=== PATIENT | female | born 1980 | race Caucasian/White ===

== ENCOUNTER → 2022-12-12 11:01 | Outpatient (CLI) | payer BC, SELFPAY ==
[2022-12-12 12:29] LABS: T4 (Thyroxine) 9.8 ug/dl (5.53-11.0); Triiodothryronine (T3) Uptake 41 % (23.5-40.5)
[2022-12-12 12:43] LABS: Thyroid Stimulating Hormone 1.16 uIU/mL (0.465-4.68)
[2022-12-13 16:13] LABS: Anti-Centromere B Antibodies <0.2 AI (0.0-0.9); Anti-DNA (DS) Ab Qn 2 IU/mL (0-9); Anti-Jo-1 <0.2 AI (0.0-0.9); Anti-Smith Antibody <0.2 AI (0.0-0.9); Antichromatin Antibodies <0.2 AI (0.0-0.9); Antiscleroderma-70 Antibodies <0.2 AI (0.0-0.9); RNP Antibodies <0.2 AI (0.0-0.9); Sjogren's Anti-SS-A <0.2 AI (0.0-0.9); Sjogren's Anti-SS-B <0.2 AI (0.0-0.9)
== END ==
PROVIDERS: PCP Family Medicine; Visit Provider Obstetrics & Gynecology
DX: N92.0 Excessive and frequent menstruation with regular cycle (principal); R60.0 Localized edema
CPT/HCPCS: 36415; 84436; 84443; 84479; 86225; 86235

== ENCOUNTER → 2023-01-23 14:45 | Outpatient (CLI) | payer BC, SELFPAY ==
--- NOTE | 2023-01-23 14:45 | MM_ITS ---
PROCEDURE INFORMATION: Exam: MG Bilateral Screening 3D Mammography Exam date and time: 01/23/2023 3:12 PM Age: 42 years old Clinical indication: Baseline. No family history of breast cancer. History of implants removed in 2019. TECHNIQUE: Imaging protocol: Bilateral Screening tomosynthesis and 2D mammography including computer-aided detection (CAD) when performed. COMPARISON: No relevant prior studies available. FINDINGS: MAMMOGRAPHY: Breast composition: The breasts are heterogeneously dense, which may obscure small masses. Mass: No suspicious mass. Architectural distortion: Mild diffuse bilateral architectural distortion with history of explantation. Calcifications: No suspicious calcifications. Asymmetric density: None. Skin thickening: None. Axillary adenopathy: None. IMPRESSION: No mammographic evidence of malignancy. Annual screening is recommended unless otherwise clinically indicated. ASSESSMENT: BI-RADS Category 2: Benign
--- NOTE | 2023-01-23 14:45 | US_ITS ---
FINAL REPORT CLINICAL HISTORY: abnormal bleeding FINDINGS: Transvaginal sonographic images of the pelvis were obtained. The uterus measures 9.1 x 5.5 x 4.5 cm. The endometrium measures 9 mm, which is within normal limits. No uterine mass is identified. The right ovary measures 2.1 cm in length and left ovary measures 3.0 cm in length. Normal blood flow seen to the ovaries. There is an 11 mm cyst or follicle in the right ovary. There is no evidence of free fluid. IMPRESSION: 11 mm cyst or follicle in the right ovary. Otherwise unremarkable exam. Reviewed, Interpreted and Dictated by Kushal Peña III, MD Transcribed by Eden Crook Authenticated and [facility]
== END ==
PROVIDERS: PCP Family Medicine; Visit Provider Obstetrics & Gynecology
DX: Z12.31 Encounter for screening mammogram for malignant neoplasm of breast (principal); N92.0 Excessive and frequent menstruation with regular cycle
CPT/HCPCS: 76830; 77063; 77067

== ENCOUNTER → 2023-04-13 10:03 | Outpatient (CLI) | payer BC, SELFPAY ==
[2023-04-13 10:28] LABS: Basophils # 0.1 K/mm3 (0-0.2); Basophils % 0.6 % (0.1-2.0); Eosinophils # 0.4 K/mm3 (0.0-0.4); Eosinophils % 5.4 % (0.1-12.0); Hematocrit 46.2 % (37.0-47.0); Hemoglobin 14.5 g/dL (12.2-16.2); Lymphocytes # 1.9 K/mm3 (0.7-4.5); Lymphocytes % 24.6 % (10-50); Mean Corpuscular HGB Conc 31.5 g/dL (31.8-35.4); Mean Corpuscular Volume 92.2 fl (81-99); Mean Platelet Volume 7.7 fl (7.4-10.4); Monocytes # 0.5 K/mm3 (0.1-1.0); Neutrophils # 4.9 K/mm3 (1.8-7.8); Neutrophils % 63.4 % (37.0-80.0); Platelet Count 288 K/mm3 (142-424); Red Blood Count 5.01 M/mm3 (4.20-5.40); Red Cell Distribution Width 13.6 % (11.5-17.5); White Blood Count 7.8 K/mm3 (4.8-10.8)
[2023-04-13 11:15] LABS: Alanine Aminotransferase 21 U/L (12-78); Albumin Level 4.5 g/dl (3.5-5.0); Albumin/Globulin Ratio 1.9 (1.1-1.8); Alkaline Phosphatase 89 U/L (38-126); Anion Gap 15.5 mEq/L (5-15); Aspartate Amino Transferase 26 U/L (14-36); Bilirubin,Total 0.6 mg/dl (0.2-1.3); Blood Urea Nitrogen 14 mg/dl (7-17); Calcium 9.3 mg/dl (8.4-10.2); Carbon Dioxide 26 mmol/L (22.0-30.0); Chloride 103 mmol/L (98-107); Estimated Glomerular Filt Rate 78 ml/min (>60); GFR (African American) 94 ML/MIN (>60); Globulin 2.4 g/dL (1.3-3.2); Glucose 92 mg/dl (74-100); Potassium 4.5 mmoL/L (3.5-5.1); Sodium 140 mmol/L (136-145); Total Protein,Serum 6.9 g/dl (6.3-8.2)
[2023-04-13 11:33] LABS: HCG,Quantitative < 2 mIU/ml (0-5.42)
== END ==
PROVIDERS: PCP Family Medicine; Visit Provider Obstetrics & Gynecology
DX: Z01.812 Encounter for preprocedural laboratory examination (principal); N92.0 Excessive and frequent menstruation with regular cycle
CPT/HCPCS: 36415; 80053; 84702; 85025

== ENCOUNTER 2023-04-16 06:07 | Day surgery (SDC) | payer BC, SELFPAY ==
[2023-04-16] VITALS (13 sets, daily range): BP systolic 120–149; BP diastolic 68–85; PULSE 73–87; RESP 14–18; TEMP 36.1–43; O2SAT 96–100; BMI 27.1
--- NOTE | 2023-04-16 07:01 | P.PN_ITS ---
[facility] Disclaimer: The information contained in this section may have been updated after the patient was seen, as this information can be updated by other users. Medical History Allergies Anxiety and depression History of COVID-19 History of gastroesophageal reflux (GERD) Menorrhagia Migraine Request for sterilization Surgical History Hx of breast augmentation Hx of section Hx of tonsillectomy Family History Other Diabetes Hypertension Social History Smoking Status: Never smoker alcohol intake: never substance use type: denies use current occupational status: employed Travel in the last 8 weeks: None [facility] Anesthesia Checklist Patient Identification Patient Identification: Arm Band and Verbal (Name & ) Structural Data Admitted From: Home Planned Operative Procedure/s: Lap salpingectomy Consent for Planned Operative Procedure(s) Verified: Yes NPO Status Verified Time NPO: 00:00 Chart Verification Results Verified: HCG Additional verifications Anesthesia Reactions: No Hx Blood Transfusions: Yes Blood Transfusion Reaction: No Airway Assessment C-Spine Mobility Assessed: Yes TMJ Mobility Assessed: Yes Dentition: Good Dentition Neurological Assessment Level of Consciousness: Awake Hx Seizures: No Numbness or tingling in extremities: No Anesthesia Plan Anesthesia Risk discussed: Yes Anesthesia Plan: Verified ASA Class: I Anesthesia Type: General
--- NOTE | 2023-04-16 09:01 | EXP.ANES.I ---
[facility] Anesthesia Record Part I Anesthesia Record I Intake, IV Amount: 1,000 Estimated blood loss (mL): 5 Urine output (mL): 0 Blood Products used (#): none Blood Pressure: 128/80 SaO2: 99 Pulse Rate: 74 Respiratory Rate: 14 Temperature: 97 F Patient is:: Drowsy Stable to PACU at:: 09:00
--- NOTE | 2023-04-16 09:12 | EXP.OP.NOTE ---
Date of procedure: 04/16/23 Pre-op Diagnosis:: 1. Menorrhagia 2. Complete family status, desires permanent sterilization Post-op Diagnosis:: 1. Menorrhagia 2. Complete family status, desires permanent sterilization 3. Intra-abdominal and intrapelvic adhesions Procedure performed:: 1. Laparoscopy, lysis of adhesions (10 minutes), Filshie clip placement 2. Hysteroscopy, D&C, Novasure endometrial ablation Surgeon:: Shobha Mixon DO Mixing Technician(s):: N/a [employer]IGARET[employer] CART[employer] SEALER:: Other Anesthesia: GETA Estimated blood loss (mL): 5 Clinical Note:: Ms Christiane Cardoso is a 43 yo P1001 who presents to [facility] for scheduled procedure. She complains of heavy periods that are regular, monthly. Flow is about 5 days but flow is getting heavier and heavier. She is complete with childbearing and would like to have permanent sterilization. Pelvic ultrasound 01/23/23 was within normal limits. TSH, 12/12/22, was 1.16. Operative findings:: 1. On bimanual exam, uterus midposition, normal size and shape, fixed in position 2. On laparoscopic exam, omentum adhered to anterior abdominal and anterior pelvic wall. Adhesions noted at vesicouterine peritoneum. Uterus fixed in the pelvis, very little movement. Bilateral fallopian tubes and bilateral ovaries grossly normal. Liver, gallbladder and stomach grossly normal. Bowel grossly normal. 3. On hysteroscopic exam, bilateral tubal ostia visualized but difficult initially secondary to large amount of fluffy endometrial tissue present in cavity Operative note:: Risks, benefits and alternatives were discussed with the patient. Risks include but are not limited to bleeding, infection, damage to adjacent structures and VTE. Patient voiced understanding and agreed to proceed with surgery. She was wheeled back to the operating room and placed under general anesthesia without difficulty. She was placed in the dorsal lithotomy position and prepped and draped in normal sterile fashion. A straight catheter was used to drain the bladder prior to the start of the procedure. A bimanual exam was performed. A weighted Auvard was placed in the vaginal vault. A single tooth tenaculum was placed on the anterior lip of the cervix. [place] manipulator was inserted into the cervical canal and attached to the tenaculum. Weighted Auvard was removed from the vagina. Attention was then drawn to the abdomen. A 1.5cm infraumbilical incision was made. Veress needle was tested and inserted intraabdominally without difficulty. Opening pressure of 7mm Hg. Abdomen was then insulflated to 15 mm Hg. Trocar was inserted through infraumbilical incision and laparoscope was inserted. Abdomen was viewed in its entirety. See findings above. Pictures were taken. Left lower quadrant was transilluminated. 5 mm incision was made and 5 mm disposable blunt trocar was inserted into the abdomen under direct laparoscopic visualization. Trocar was removed and sleeve was left in place. Ligasure was used to lysis adhesions between anterior abdominal and anterior pelvic wall and omentum. Next, right fallopian tube was followed down. Right Filshie clip was placed approximately 2 cm from cornua, on the isthmic portion of the tube. Same procedure was carried out on the left side. Hemostasis was noted. Pictures were taken. Left lower quadrant trocar was removed under direct laparoscopic visualization. Pneumoperitoneum was released into the atmosphere. Infraumbilical trocar was removed under direct laparoscopic visualization to ensure no herniation of bowel or omentum. Skin incisions were closed with 3-0 Vicryl. Dermabond was applied over closed skin incisions. Attention was then turned to the vagina. [place] manipulator was removed. Uterus sounded to 10. Sequential Avelino dilators were used to dilate the cervical os. Hysteroscope was tested inserted through the cervix without difficulty. Endometrial cavity was evaluated. See findings above. Pictures were taken. Hysteroscope was removed. Medium size sharp curette was ins
--- NOTE | 2023-04-16 09:35 | SUR.OPER ---
0755- SPOKE WITH PATIENTS DAUGHTER REGARDING MD CHANGE IN PLAN TO APPLY FILSHIE CLIPS INSTEAD OF FULLY REMOVING TUBES. DAUGHTER STATED, THAT IS OKAY, DO WHATEVER IS NECESSARY.
--- NOTE | 2023-04-16 14:00 | P.PNANES_ITS ---
[facility] Anesthesia Record Part II Anesthesia Record Part II Discharge Time: 09:50 Destination: Surgical Day Care (OP Surgery) PACU nurse assessment reviewed?: Yes Patient Condition:: Good Anesthesia Complications:: None Swallowing reflex intact?: Yes Cyanosis?: No Blood Pressure: 144/75 Pulse Rate: 79 Temperature: 98 F Mental Status: Alert & Oriented Pain level:: 5 Nausea and/or vomitting:: None Intake, IV Amount: 0
== END 2023-04-16 10:30 | disposition home or self-care (01) ==
PROVIDERS: PCP Family Medicine; Visit Provider Obstetrics & Gynecology
PROC: (CPT 58563; principal; 2023-04-16 07:30)
PROC: 0UDB8ZZ Extraction of Endometrium, Via Natural or Artificial Opening Endoscopic (ICD-10-PCS; CPT 58558; 2023-04-16 07:30)
DX: N92.0 Excessive and frequent menstruation with regular cycle (principal); Z30.2 Encounter for sterilization; N73.6 Female pelvic peritoneal adhesions (postinfective)
CPT/HCPCS: 58563; 58671; 49329; J2405

== ENCOUNTER 2023-10-05 08:31 | Emergency (ER) | payer BC, SELFPAY ==
[2023-10-05 08:33] VITALS: BP 138/94; PULSE 113; RESP 20; TEMP 36.8; O2SAT 99; BMI 23.5
--- NOTE | 2023-10-05 08:44 | PC.NURSE ---
Dr. Green at [facility] for pt eval
--- NOTE | 2023-10-05 08:48 | CT_ITS ---
FINAL REPORT TECHNIQUE: After the administration of intravenous contrast, axial images were obtained through the abdomen and pelvis by computed tomography. The study was performed with techniques to keep radiation dose as low as reasonably achievable, (ALARA). Individual dose reduction techniques using automated exposure control or adjustment of mA and/or kV according to the patient's size were employed. CLINICAL HISTORY: RLQ abd pain FINDINGS: Abdomen: The lung bases are clear. The liver parenchyma is homogeneous. The gallbladder is present. The spleen, pancreas, adrenals and kidneys appear unremarkable. The aorta is normal in caliber. There is no free fluid or adenopathy. Pelvis: The appendix is normal. There is a large amount of retained stool throughout the colon. There are low-attenuation areas in the uterus, probably fluid in the endometrial cavity. The urinary bladder is unremarkable. There is no free fluid or adenopathy. IMPRESSION: Constipation Reviewed, Interpreted and Dictated by Pablo Blanton MD Transcribed by Franny Deng Authenticated and [facility]
--- NOTE | 2023-10-05 08:50 | HMH.EDGENADL ---
Discharge Plan Disposition Patient Disposition: Home, Self-Care Prescriptions Prescriptions: New dicyclomine 20 mg tablet 20 mg PO TID PRN (Reason: abdominal pain or spasm) 7 Days Qty: 21 0RF No Action tramadol 50 mg tablet 50 mg PO BID PRN (Reason: .) Hold Instructions: Resume on 04/23/23. sumatriptan succinate 100 mg tablet 100 mg PO DAILY PRN (Reason: migraines) Emgality Pen 120 mg/mL pen injector 120 mg SQ MONTHLY Patient Comments: ADMINISTER 1 ML UNDER THE SKIN EVERY 30 DAYS DIRECTED valacyclovir 1 gram tablet 1,000 mg PO DAILY Qulipta 60 mg tablet 60 mg PO DAILY bupropion HCl [Wellbutrin SR] 150 mg tablet sustained-release 12 hr 150 mg PO DAILY hydrocodone-acetaminophen 5-325 mg tablet 1 tab PO Q6H PRN (Reason: pain) Qty: 10 0RF ibuprofen 800 mg tablet 800 mg PO Q8H PRN (Reason: pain) Qty: 20 0RF Referrals Follow up/Referrals: Jackson Murrell [Primary Care Provider] - See instructions Activity Restrictions/Add. Instructions Additional Instructions/Restrictions: No emergent medical condition was identified today and your CT scan was significant for a large amount of stool throughout the colon concerning for constipation. Please take lidr-lst-aknihgk MiraLAX half a cap twice a day, doubling the dose every 3 days until you reach the consistency of soft serve ice cream and a daily bowel movement and then maintain this dose for at least 2 weeks. Please hydrate yourself with Gatorade or Powerade while you are using this medication. Lastly given your pelvic cramping and bleeding is possible this could be related to your hormonal balance and breakthrough bleeding in association with your uterine ablation. You may follow-up with your [facility] doctor if you are not improving. Clinical Impressions Clinical Impression: Abdominal pain, RLQ, Constipation Instructions Patient Instructions: DI for Acute Abdominal Pain Discharge ED Provider: Tank Green General Adult HPI General Chief complaint: Abdominal Pain Stated complaint: sever lower abd pain Time Seen by Provider: 10/05/23 08:42 History of Present Illness HPI narrative: Patient is a 43-year-old female presents today with right lower quadrant abdominal pain. She believes that this is ovarian in nature as she states that it felt similar to ovarian cramps from a menstrual standpoint on its initiation yesterday evening which is when the symptoms began. However it migrated and become localized to the right lower quadrant. She still has her appendix has never had ovarian cyst in the past. States she had a bilateral tubal ligation as well as uterine ablation in April of this year has not had a period since that time but did note today when she urinated that she had a little bit of blood in her urine. No history of kidney stones. States the pain while it is not completely resolving at any moment is intermittently worsening and is colicky in nature. Denies any vaginal discharge dysuria frequency urgency or changes in bowel movements. Related Data Home Medications Medication Instructions Recorded Confirmed tramadol 50 mg tablet 50 mg PO BID PRN . 12/12/22 05/04/23 atogepant 60 mg tablet (Qulipta) 60 mg PO DAILY . 04/13/23 05/04/23 galcanezumab-gnlm 120 mg/mL 120 mg SQ MONTHLY migraines 04/13/23 05/04/23 subcutaneous pen injector (Emgality Pen) sumatriptan succinate 100 mg tablet 100 mg PO DAILY PRN migraines 04/13/23 05/04/23 valacyclovir 1 gram tablet 1,000 mg PO DAILY . 04/13/23 05/04/23 bupropion HCl 150 mg tablet,12 hr 150 mg PO DAILY . 04/16/23 05/04/23 sustained-release (Wellbutrin SR) Previous Rx's Medication Instructions Recorded hydrocodone 5 mg-acetaminophen 325 1 tab PO Q6H PRN pain #10 tabs 04/16/23 mg tablet ibuprofen 800 mg tablet 800 mg PO Q8H PRN pain #20 tabs 04/16/23 dicyclomine 20 mg tablet 20 mg PO TID PRN abdominal pain or 10/05/23 spasm 7 days #21 tabs Allergi
[2023-10-05 08:56] VITALS: BMI 23.5
[2023-10-05 08:59] LABS: Microscopic, Urine URINE MICROSCOPIC (MICROSCOPIC)
[2023-10-05 09:02] LABS: Bilirubin,Urine Negative (Negative); Blood, Urine 3+ (Negative); Color,Urine YELLOW (Yellow); Glucose,Urine (UA) Negative (Negative); Ketones,Urine Negative (Negative); Leukocyte Esterase,Urine Negative (Negative); Nitrate,Urine Negative (Negative); PH,Urine 6.5 (5.0-8.5); Protein,Urine Negative (Negative); Specific Gravity, Urine 1.015 (1.005-1.030); Urobilinogen,Urine 0.2 EU/dl (0.2)
[2023-10-05 09:04] LABS: Appearance,Urine Slightly Cloudy (Clear)
[2023-10-05 09:04] LABS: Basophils # 0.1 K/mm3 (0-0.2); Basophils % 0.7 % (0.1-2.0); Eosinophils # 0.4 K/mm3 (0.0-0.4); Eosinophils % 3.3 % (0.1-12.0); Hematocrit 46.1 % (37.0-47.0); Hemoglobin 15.4 g/dL (12.2-16.2); Lymphocytes # 2.8 K/mm3 (0.7-4.5); Lymphocytes % 24.6 % (10-50); Mean Corpuscular HGB Conc 33.4 g/dL (31.8-35.4); Mean Corpuscular Hemoglobin 29.9 pg (27.0-31.2); Mean Corpuscular Volume 89.5 fl (81-99); Monocytes # 0.6 K/mm3 (0.1-1.0); Neutrophils # 7.4 K/mm3 (1.8-7.8); Neutrophils % 66.4 % (37.0-80.0); Platelet Count 318 K/mm3 (142-424); Red Blood Count 5.15 M/mm3 (4.20-5.40); Red Cell Distribution Width 13.6 % (11.5-17.5); White Blood Count 11.2 K/mm3 (4.8-10.8)
[2023-10-05 09:07] LABS: Chloride 104 mmol/L (98-107); Potassium 3.5 mmoL/L (3.5-5.1); Sodium 140 mmol/L (136-145)
--- NOTE | 2023-10-05 09:08 | PC.NURSE ---
pt would like to wait on receiving morphine, states the pain is tolerable at this time.
[2023-10-05 09:10] LABS: Alanine Aminotransferase 23 U/L (12-78); Albumin Level 4.6 g/dl (3.5-5.0); Albumin/Globulin Ratio 1.5 (1.1-1.8); Alkaline Phosphatase 108 U/L (38-126); Anion Gap 11.5 mEq/L (5-15); Aspartate Amino Transferase 28 U/L (14-36); Bilirubin,Total 0.5 mg/dl (0.2-1.3); Blood Urea Nitrogen 15 mg/dl (7-17); Calcium 8.7 mg/dl (8.4-10.2); Carbon Dioxide 28 mmol/L (22.0-30.0); Creatinine Clearance Estimated 85 mL/min (50-200); Estimated Glomerular Filt Rate 68 ml/min (>60); GFR (African American) 82 ML/MIN (>60); Glucose 111 mg/dl (74-100); Total Protein,Serum 7.6 g/dl (6.3-8.2)
[2023-10-05 09:25] LABS: Amorphous Sediment,Urine 1+ /lpf; Bacteria,Urine 1+ /lpf; RBC,Urine Occasional #/hpf (0-3)
[2023-10-05 09:30] VITALS: BP 124/81; PULSE 92; RESP 18; O2SAT 99
--- NOTE | 2023-10-05 09:56 | PC.NURSE ---
rounded on pt and she is still wanting to hold off on pain medicine. Also called radiology to recheck wait time for ct. They are checking with radio personality.
--- NOTE | 2023-10-05 09:59 | PC.NURSE ---
paradi operator here to take pt to ct scan.
[2023-10-05 10:01] LABS: HCG Qualitative, Serum Negative (Negative)
[2023-10-05 10:30] VITALS: BP 123/82; PULSE 67; RESP 20; O2SAT 100
[2023-10-05 10:54] VITALS: BP 140/92; PULSE 92; RESP 18; TEMP 36.8; O2SAT 99
== END 2023-10-05 10:55 | disposition home or self-care (01) ==
PROVIDERS: Emergency Provider Student in an Organized Health Care Education/Training Program; PCP Family Medicine
DX: R10.31 Right lower quadrant pain (principal); K59.00 Constipation, unspecified; F17.210 Nicotine dependence, cigarettes, uncomplicated
CPT/HCPCS: 74177; 80053; 81001; 84703; 85025; 96361; 96374; 96375; 99285; J2405; Q9967

== ENCOUNTER 2023-11-14 12:56 | Outpatient (CLI) | payer BC, SELFPAY | END 2023-11-14 23:59 | LOC: RT 12:57 | PROVIDERS: Visit Provider Physician Assistant | DX: R00.2 Palpitations (principal); R06.09 Other forms of dyspnea; R07.9 Chest pain, unspecified; R42 Dizziness and giddiness; R94.31 Abnormal electrocardiogram [ECG] [EKG]; R53.83 Other fatigue | CPT/HCPCS: 93225 ==

== ENCOUNTER 2023-12-17 06:22 | Outpatient (CLI) | payer BC, SELFPAY ==
--- NOTE | 2023-12-17 06:25 | NM_ITS ---
APPROVED REPORT Exam: Nuclear Stress Test Indication: SOB, Abnormal EKG, Palpitations Patient Location: Outpatient Stress Tech: Catarina Prieto [place] Tech:Deedee Jensen, ARRT, RT (R)(N) Ht: 5 ft 9 in Wt: 173 lbs Bra Size: 34A HR: 94 bpm BP: 111/80 mmHg BSA: 1.94 m2 TID: 1.18 BMI: 25.5 History: SOB, Abnormal EKG, Palpitations Procedure: Patient exercised on Kurtis protocol 9:01 minutes and sec, resting heart rate 94 bpm, resting blood pressure 111/80 mmHg, with exercise maximum heart rate achived was 171 bpm which is 98 % of the maximum predicted heart rate and blood pressure was 169/88 mmHg. Test was stopped due to SOB. Patient denied any complaint of chest pain. Patient has Average exercise capacity, achieved 10.1 METs of workload on treadmill, the blood pressure response to exercise was Normal. Cardiac Stress and Resting SPECT Images: Cardiac Stress and Resting SPECT images were obtained using technetium 99m Myoview 30.3 mCi stress and 10.28 mCi at rest. Resting and stress imaging in supine and prone positions demonstrate no evidence of fixed or reversible perfusion defects. Gated imaging demonstrates normal global and regional LV systolic function. LVEF is calculated at 55%. Conclusion: No evidence of fixed or reversible perfusion defects. Gated imaging demonstrates normal global and regional LV systolic function. LVEF is calculated at 55%. Electronically signed by : Margi Katz MD 12/17/2023 16:42:36
[2023-12-17] MEDS: ISOTOPE MYOVIEW (PER STUDY) 1 DOSE IV (08:26)
[2023-12-17] MEDS: SODIUM CHLORIDE 0.9% 10ML SYR (RAD ONLY) 10 ML IV ×2 (08:26)
--- NOTE | 2023-12-17 08:37 | CA_ITS ---
APPROVED REPORT Exam: Exercise Treadmill Technologist: Catarina Borden, Ht: 5 ft 9 in Wt: 177 lbs BSA: 1.96 m2 HR: 80 bpm BP: 116/79 mmHg Rhythm: NSR Medical History Medications: Tramadol,,,,, ValACYCLOVIR,,,,, TriNTELLIX,,,,, ONdansetron,,,,, Sumatriptan Succinate,,,,, EMGALITY pen,,,,, Stress Test Details Test: Kurtis HR Resting HR: 94 bpm Max Heart Rate (APMHR): 175 bpm Max HR Achieved: 171 bpm Target HR (85% APMHR): 149 bpm % of APMHR: 98 Recovery HR: 97 bpm HR response to stress: Normal HR response to stress BP Resting BP: 111.0/80.0 mmHg Max BP: 169.0/88.0 mmHg Recovery BP: 126.0/82.0 mmHg BP response to stress: Normal blood pressure response to stress. ECG Resting ECG: Normal sinus rhythm Stress ECG: < 0.[address] depression Arrhythmia: None Recovery ECG: Return to baseline within 3 minutes of recovery Recovery Arrhythmia: None Clinical Exercise duration: 09:01 min Highest Stage Achieved: III Exercise capacity: 10.1 METs Overall Exercise Capacity for Age: Average Stress ECG Conclusion The patient was able to exercise for a total of 9 minutes, 01 seconds. She achieved a total of 10.1 METS. She has average exercise capacity compared to age and sex matched peers. She has normal HR and BP response to exercise. The patient eventually stopped for generalized fatigue. Ectopy: None ST changes: < 0.[address] depression Conclusion: Average exercise capacity. Unremarkable ECG portion of stress test. Myoview images reported separately. Test Summary REST . . . . . . . Sitting REST . . . . . . . Standing REST 05:29 0.0 0.0 94 . 111/ 80 . . Stage 1 01:00 10.0 1.7 113 . . . . Stage 1 02:00 10.0 1.7 133 . . . . Stage 1 03:00 10.0 1.7 127 . 130/ 82 . . Stage 2 01:00 12.0 2.5 139 . . . . Stage 2 02:00 12.0 2.5 146 . . . . Stage 2 03:00 12.0 2.5 149 . 148/ 82 . . Stage 3 01:00 14.0 3.4 165 . . . . Stage 3 02:00 14.0 3.4 169 . . . . Stage 3 03:00 14.0 3.4 170 . . . . Stage 4 00:01 16.0 4.2 170 . . . Stop exercise at 09:01 RECOVERY 01:00 0.0 0.0 134 . . . . RECOVERY 02:00 0.0 0.0 120 . 169/ 88 . . RECOVERY 03:00 0.0 0.0 116 . 145/ 92 . . RECOVERY 04:00 0.0 0.0 104 . 134/ 88 . . RECOVERY 05:00 0.0 0.0 99 . 126/ 82 . . RECOVERY 05:07 0.0 0.0 98 . 126/ 82 . . Electronically signed by : Margi Katz MD 12/17/2023 16:40:22
--- NOTE | 2023-12-17 08:57 | CA_ITS ---
APPROVED REPORT EXAM: Comprehensive 2D, Doppler, and color-flow Echocardiogram Cargo And Container Inspector: Ginna Sarabia RVT Ht: 5 ft 9 in Wt: 177lbs BSA: 1.96 BP: 127/80 mmHg Indications: PALPS,CP,LYONS,SMOKER,ABN EKG 2D Dimensions LA Volume 28.40 mL LA Volume Index 14.49 mL/m2 (M/F) 16-34 M-Mode Dimensions RVDd 2.26 cm (0.9-2.6) LA Diam 3.07 cm (1.9-4.0) LVDd 4.69 cm (3.5-5.7) LVDs 3.40 cm (3.5-5.7) IVSd 0.82 cm (0.6-1.1) PWd 0.72 cm (0.6-1.1) EF (Teich) 53.50% FS 27.50% EDV (Teich) 101.90 mL TAPSE 2.52 (<1.7) ESV (Teich) 47.40 mL LV Diastology E Decel Time 150 (160-240 msec) E/A Ratio 0.9 Aortic Valve HUMAIRA Index 1.72 cm2/m2 AoV Peak Colten. 115.0 (50-130 cm/s) AO Peak GR. 5.30 mmHg AO Mean GR. 2.60 (<5 mmHg) AO VTI 19.0 (18-25 cm) HUMAIRA (VTI) 3.45 (2.5-4.5 cm2) Mitral Valve MV E Max Colten. 77.0 (40-130 cm/s) MV A Velocity 85.0 (40-130 cm/s) E/A Ratio 0.90 MV PHT 44.0 ms Pulmonary Valve PV Peak Velocity 107.0 (50-150 cm/s) Tricuspid Valve TR P. Velocity 170.00 cm/s RAP Estimate 10.00 mmHg RVSP 21.60 mmHg Left Ventricle The left ventricle is normal size. The left ventricular systolic function is normal. The left ventricular ejection fraction is within the normal range. There is normal left ventricular wall thickness. There is normal LV segmental wall motion. The left ventricular diastolic function is normal. LVEF is 55%. Right Ventricle The right ventricle is normal size. The right ventricular systolic function is normal. Atria The left atrium size is normal. The right atrium size is normal. There is no Doppler evidence of interatrial shunt. Aortic Valve The aortic valve opens well. There is no aortic valvular stenosis. No aortic regurgitation is present. Mitral Valve The mitral valve is normal in structure. No evidence of mitral valve stenosis. There is no mitral valve regurgitation noted. Tricuspid Valve The tricuspid valve leaflets are thin and pliable. Trace tricuspid regurgitation. There is insufficient jet to estimate RVSP. Pulmonic Valve The pulmonary valve is normal in structure. Trace pulmonic regurgitation. Great Vessels The aortic root is normal in size. The ascending aorta is normal in size. IVC is normal in size and collapses >50% with inspiration. Pericardium There is no pericardial effusion. Other Information Study Quality: Adequate Conclusion Normal biventricular systolic function. No significant valvular stenosis or regurgitation. Electronically signed by : Margi Katz MD 12/19/2023 13:27:00
== END 2023-12-17 23:59 ==
LOC: RAD 06:22
PROVIDERS: PCP Family Medicine; Visit Provider Physician Assistant
DX: R00.2 Palpitations (principal); R06.00 Dyspnea, unspecified; R07.9 Chest pain, unspecified; R42 Dizziness and giddiness; R53.83 Other fatigue; R94.31 Abnormal electrocardiogram [ECG] [EKG]
CPT/HCPCS: 78452; 93017; 93018; 93306; A9502

== ENCOUNTER 2024-01-01 10:46 | Outpatient (CLI) | payer BC, SELFPAY ==
--- NOTE | 2024-01-01 10:47 | US_ITS ---
PROCEDURE: US TRANSVAGINAL CLINICAL INDICATION: LLQ Pain COMPARISON: CT CT ABDOMEN PELVIS W CON from 10/05/2023 FINDINGS: Transvaginal sonographic images of the pelvis were obtained. UTERUS: 8.8 cm x 3.9 cmx 4.3cm anteverted with a combined endometrial thickness of 5.4mm. There is a 5.7 mm nabothian cyst in the cervix. Within the uterus there is a fibroid measuring 0.8 cm x 0.5 cm x 0.6 cm. It appears to be adjacent to the endometrium in the lower uterine segment. LEFT OVARY: 3.2 cmx1.9cmx1.6cm with a volume of 3.2ml. There is a follicle on the left ovary measuring 1.1 cm x 1.1 cm x 1.0 cm. RIGHT OVARY: 3.0cmx 1.8 cmx2.1cm with a volume of 5.9ml. There is a follicle in the right ovary measuring 1.6 cm x 0.7 cm x 1.8 cm. There appears to be the a corpus luteum in the right ovary measuring 1.6 cm x 1.4 cm x 0.9 cm. Both ovaries are seen and appear normal. Doppler flow to both ovaries are seen. There is no fluid in the cul-de-sac. IMPRESSION: 1. Anteverted uterus normal in shape and size. There is a small fibroid adjacent to the anterior endometrium measuring 0.8 cm. 2. Both ovaries are seen and appear normal. They both have follicles. A corpus luteum is seen in the right ovary. 3. No fluid in the cul-de-sac. Dictated by: Sabino Huang MD 01/01/2024 17:05 Sabino Huang MD in [facility] 01/01/2024 17:05
== END 2024-01-01 23:59 ==
LOC: RAD 10:47
PROVIDERS: PCP Obstetrics & Gynecology; Visit Provider Obstetrics & Gynecology
DX: R10.32 Left lower quadrant pain (principal); R19.8 Other specified symptoms and signs involving the digestive system and abdomen
CPT/HCPCS: 76830

== ENCOUNTER 2025-02-16 12:53 | Outpatient (CLI) | payer BC, SELFPAY ==
--- NOTE | 2025-02-16 13:00 | US_ITS ---
PROCEDURE: US TRANSVAGINAL CLINICAL INDICATION: LLQ pain COMPARISON: CT CT ABDOMEN PELVIS W CON from 10/05/2023 US US TRANSVAGINAL from 01/01/2024 FINDINGS: Transvaginal sonographic images of the pelvis were obtained. UTERUS: 8.8 cm x 5.4 cmx 4.9 cm anteverted with a combined endometrial thickness of 7.4mm. She appears to have a septate uterus and post ablation. There is a bilobed cystic collection of fluid within the endometrium on the right at the fundus that measures 1.3 cm. This is likely a small hematometra. The left side of the uterus has normal appearing endometrium and measures 7.5 mm. LEFT OVARY: [id number] with a volume of 10.3ml. The left ovary contains what appears to be a corpus luteum measuring 1.4 cm x 1.3 cm x 0.8 cm. RIGHT OVARY: 4cmx [id number] with a volume of 8.8ml. There is a follicle in the right ovary measuring 2.1 cm x 1.5 cm x 1.9 cm. There is a 2nd follicle measuring 1.1 cm x 1.2 cm x 1.0 cm. The fluid within each follicle has a ground-glass appearance possibly consistent with an endometrioma or hemorrhagic ovarian cyst. Both ovaries are seen. Doppler flow to both ovaries are seen. There is no fluid in the cul-de-sac. IMPRESSION: 1. Anteverted uterus normal in shape and size. There has been a prior ablation. The uterus appears to be septate. The right side fundus contains a hematometra measuring 1.3 cm. The left endometrium appears normal measuring 7.5 mm. 2. Both ovaries are seen. The left ovary contains a small collapsing corpus luteum. The right ovary contains 2 follicles measuring 2.1 cm and 1.2 cm. Both appear hemorrhagic with ground-glass appearing fluid. Could also represent endometriomas. 3. No fluid in the cul-de-sac. Dictated by: Sabino Huang MD 02/16/2025 16:45 Sabino Huang MD in [facility] 02/16/2025 16:45
== END 2025-02-16 23:59 | disposition home or self-care (01) ==
LOC: RAD 12:54
PROVIDERS: PCP Family Medicine; Visit Provider Obstetrics & Gynecology
DX: R10.32 Left lower quadrant pain (principal)
CPT/HCPCS: 76830